=== PATIENT | female | born 1935 | race American Indian/Alaskan Native ===

== ENCOUNTER 2017-07-25 03:06 | Emergency (ER) | payer MEDICARE ==
[~2017-07-25] VITALS: Ht 162.6 cm; Wt 60.8 kg
[2017-07-25 03:06] VITALS: BP_SYST 137
--- NOTE | 2017-07-25 03:06 | NUR ---
Patient to ER bed 2 to gown for evaluation. Side rails up. Report given to ORACIO HANDLEY.
--- NOTE | 2017-07-25 03:08 | NUR ---
Patient's daughter in law states that pt has been lethargic since earlier this evening due to low blood sugar. Paramedics state patient's blood sugar was "in the 30s" prior to ER visit. Patient's current blood sugar was 91 at this time. Patient lethargic, able to respond slowly to daughter in law when spoken to. Pt denies any other complaints.
--- NOTE | 2017-07-25 03:20 | NUR ---
KATRINA Blood at bedside examining patient.
[2017-07-25] MEDS ORDERED: NACL 0.9% 1,000 ML IV ONE (03:30)
[2017-07-25] MEDS ORDERED: DEXTROSE 50% JECT 50 ML DISP.SYRIN IVP ONE (03:30)
[2017-07-25 03:53] LABS: BASOPHILS % (AUTO) 0.7 % (0.0-2.0); EOSINOPHILS # (AUTO) 0.3 K/uL (0.0-0.4); EOSINOPHILS % (AUTO) 5.5 % (0.0-4.0); HEMATOCRIT 30.4 % (36-48); LYMPHOCYTES # (AUTO) 1.2 K/uL (1.0-5.5); LYMPHOCYTES % (AUTO) 25.5 % (20.5-51.5); MEAN CORPUSCULAR HEMOGLOBIN 30 pg (27-31); MEAN CORPUSCULAR HGB CONC 33 % (32-36); MEAN CORPUSCULAR VOLUME 90 fL (79.0-98.0); MONOCYTES # (AUTO) 0.4 K/uL (0.0-1.0); MONOCYTES % (AUTO) 7.4 % (1.7-9.3); NEUTROPHILS # (AUTO) 2.9 K/uL (1.8-7.7); NEUTROPHILS % (AUTO) 60.9 % (40.0-70.0); RED BLOOD CELL COUNT(AUTO) 3.37 MIL/uL (4.2-6.2); RED CELL DISTRIBUTION WIDTH 15.1 % (9.0-15.0); WHITE BLOOD COUNT (AUTO) 4.9 K/uL (4.8-10.8)
[2017-07-25 04:01] LABS: PLATELET COUNT (AUTO) 111 K/uL (130-430)
[2017-07-25 04:07] LABS: ANION GAP 3 (5-15); CALCIUM 9.3 mg/dL (8.4-11.0); CHLORIDE 106 mmol/L (98-107); GLUCOSE 281 mg/dL (70-99); POTASSIUM 3.2 mmol/L (3.5-5.1); SODIUM SERUM 138 mmol/L (136-145); UREA NITROGEN, BLOOD 42 mg/dL (8-21)
[2017-07-25 04:08] LABS: ALANINE AMINOTRANSFERASE 26 U/L (12-78); ALBUMIN 3.1 g/dL (3.4-4.8); ASPARTATE AMINOTRANSFERASE 22 U/L (10-37); CREATININE 1.45 mg/dL (0.55-1.30); TOTAL BILIRUBIN 0.3 mg/dL (0.0-1.0)
--- NOTE | 2017-07-25 04:38 | NUR ---
Patient stable, no signs of distress noted. Patient AAOx4, ambulatory with assistance. Pt is fatigued after ambulating to restroom. Will continue to monitor.
--- NOTE | 2017-07-25 06:30 | NUR ---
Pt stable, no signs of distress noted. Vital signs within therapeutic range. Will continue to monitor.
--- NOTE | 2017-07-25 06:59 | NUR ---
Attempted to call to give report to RN at [facility] Javed Alvarez. Spoke to Gabriel, was told to have day shift call back in 15-20 mins for report.
[2017-07-25] MEDS ORDERED: KCL 10 mEq in D5/0.45NS 1000mL 1,000 ML IV SCH (07:00)
--- NOTE | 2017-07-25 07:01 | NUR ---
Spoke w/ [id number] and informed her that pt will be transferred to [facility]
[2017-07-25 07:25] VITALS: BP_SYST 134
--- NOTE | 2017-07-25 07:25 | NUR ---
Patient to be transferred to [facility]. Is being transferred due to higher level of care. Receiving facility has accepting physician and available space. ER physician has signed transfer form. Patient or responsible libertarian has agreed to transfer and signed form. Patient belongings inventoried and will be sent with patient. Copy of nursing notes, lab reports, EKG, Physicians Orders and X-rays to be sent with patient. Report called to ORACIO Rodriguez at receiving facility. Receiving physician is Dr. Sarkar. [facility] has been called for transfer. [facility] paramedics at bedside.
== END 2017-07-25 07:25 | disposition short-term general hospital (02) ==
LOC: SED 03:06
DX: E11.649 Type 2 diabetes mellitus with hypoglycemia without coma (principal); E86.0 Dehydration; N28.9 Disorder of kidney and ureter, unspecified; Z88.0 Allergy status to penicillin
CPT/HCPCS: 36415; 70450; 80053; 82962; 84484; 85025; 96361; 96365; 96375; 99285; J7030

== ENCOUNTER 2022-01-05 12:00 | Emergency (ER) | payer MEDICARE, SELFPAY ==
[~2022-01-05 12:00] MED LIST: DONE10TA44 PO; HYDR-4038 PO; HYG25 PO; ISOS60TA71 PO; LIP40 PO; NEU300 PO; NOR10 PO
--- NOTE | 2022-01-05 12:05 | NUR ---
Patient to ER bed 4 code called. Assisted Elsy with care.
[2022-01-05] MEDS ORDERED: NALOXONE HCL 0.4 MG/ML AMP (NARCAN) ONE (12:07)
--- NOTE | 2022-01-05 12:10 | NUR ---
patient unresponsive, no pulse, no respirations. patient placed in room 4 at this time. full code blue at this time.
--- NOTE | 2022-01-05 12:10 | NUR ---
summ: pt. bib ACLS with report of weaknes, dizziness and fell in bathroom so family called 911, per report pt. was AAOX4 with EMS when attempted to speak with pt. she was non responsive, eyes fixed and dialated, code called Dr. Ayala placed EJ see ongoing notes
--- NOTE | 2022-01-05 12:12 | NUR ---
RT NOTE: 1212 Patient was intubated by Dr LOZANO with 7.5 ETT secured at 23cm. CPR started after intubation.
[2022-01-05] MEDS ORDERED: ATROPINE SULFATE 0.4 MG/ML VIAL ONE (12:13)
[2022-01-05] MEDS ORDERED: ATROPINE SULFATE 1 MG/10 ML SYRINGE IVP ONE (12:14)
--- NOTE | 2022-01-05 12:29 | NUR ---
after several rounds of resusitation patient pronounced family notified. MD dr Ayala, house sup, and charge nurse at bedside. [facility] notified by tyrone medina and coroners office notified.
--- NOTE | 2022-01-05 12:45 | NUR ---
[facility] procurement agency contacted by [employer]. Case # [id number].may release body per [facility].
--- NOTE | 2022-01-05 13:13 | NUR ---
[facility] Department of Staff Development Educator called contacted by [place] NARAYANAN. Spoke with .Case #decline . Estimated arrival time . Family notified by Dr Ayala..
--- NOTE | 2022-01-05 18:15 | NUR ---
[facility] AT BEDSIDE TO TRANSPORT TO HOME. MORTUARY PLACED PATIENT IN BODY BAG AND FACE SHEET ADMINISTERED.
== END 2022-01-05 18:18 ==
LOC: SED 12:00
DX: I46.9 Cardiac arrest, cause unspecified (principal); I10 Essential (primary) hypertension; E11.9 Type 2 diabetes mellitus without complications; Z88.0 Allergy status to penicillin; Z79.899 Other long term (current) drug therapy
CPT/HCPCS: 31500; 92950; 99285; J0461 ×2; J2310